=== PATIENT | male | born 1945 | race Caucasian/White ===

== ENCOUNTER 2022-01-14 07:57 | Day surgery (SDC) | payer MEDICARE, BC ==
[2022-01-14] VITALS (7 sets, daily range): BP systolic 151–171; BP diastolic 72–88
[~2022-01-14] VITALS: Ht 182.9 cm; Wt 85.8 kg
[2022-01-14] MEDS ORDERED: cefazolin/dext.iso 2gm/50ml 50 ML IV ONE (08:35)
[2022-01-14 08:45] LABS: BASOPHILS # (AUTO) 0.1 X10'3 (0-0.2); BASOPHILS % (AUTO) 0.9 % (0-1); EOSINOPHILS # (AUTO) 0.1 X10'3 (0-0.9); EOSINOPHILS % (AUTO) 2.1 % (0-6); HEMATOCRIT 39.9 % (42.0-52.0); HEMOGLOBIN 13.3 g/dl (14.0-17.9); LYMPHOCYTES # (AUTO) 1.6 X10'3 (1.1-4.8); LYMPHOCYTES % (AUTO) 23.1 % (21-51); MEAN CORPUSCULAR HEMOGLOBIN 31.2 PG (27.0-31.0); MEAN CORPUSCULAR HGB CONC 33.4 g/dL (33.0-36.5); MEAN CORPUSCULAR VOLUME 93.4 FL (78-98); MEAN PLATELET VOLUME 8.2 FL (7.4-10.4); MONOCYTES # (AUTO) 0.6 X10'3 (0-0.9); MONOCYTES % (AUTO) 8.7 % (2-12); NEUTROPHILS # (AUTO) 4.5 X10'3 (1.8-7.7); NEUTROPHILS % (AUTO) 65.2 % (42-75); PLATELET COUNT 172 X10'3 (140-440); RED BLOOD COUNT 4.27 X10'6 (4.70-6.10); RED CELL DISTRIBUTION WIDTH 13.8 % (11.5-14.5); WHITE BLOOD COUNT 6.9 X10'3 (4.5-11.0)
[2022-01-14] MEDS ORDERED: VANCOMYCIN 1,500MG in D5W 500ML IVPB IV ONE (08:45)
[2022-01-14] MEDS ORDERED: VANCOMYCIN 1,500MG inj. 1,500 MG in normal saline 250ml IV soln 300 ML IV ONE (08:51)
[2022-01-14 08:58] LABS: ALBUMIN 3.8 G/DL (3.4-5.0); ANION GAP 10 (8-16); BLOOD UREA NITROGEN 17 MG/DL (7-18); BUN/CREATININE RATIO 14.9 (5.4-32.0); CALCIUM 9.1 MG/DL (8.5-10.1); CHLORIDE 106 MMOL/L (99-107); CREATININE 1.14 MG/DL (0.60-1.10); GLUCOSE 110 MG/DL (70-104); MAGNESIUM 1.6 MG/DL (1.5-2.4); POTASSIUM 3.9 MMOL/L (3.5-5.1); SODIUM 143 MMOL/L (135-145); TOTAL CARBON DIOXIDE 27.5 MMOL/L (24-32); eGFR 62 ML/MIN
[2022-01-14] MEDS ORDERED: DULO60CA65 PO (09:40)
[2022-01-14] MEDS ORDERED: CARV25TA2 PO (09:40)
[2022-01-14] MEDS ORDERED: AMLO10TA13 PO (09:40)
[2022-01-14] MEDS ORDERED: FENO135C4 PO (09:40)
[2022-01-14] MEDS ORDERED: PANT40TA54 PO (09:40)
[2022-01-14] MEDS ORDERED: ATOR20TA66 PO (09:40)
[2022-01-14] MEDS ORDERED: DOXA4TAB5 PO (09:40)
[2022-01-14] MEDS ORDERED: METF-1203 PO (09:40)
[2022-01-14] MEDS ORDERED: ibuprofen tablet 400 MG TABLET PO STA (12:12)
[2022-01-14] MEDS ORDERED: fentaNYL/PF 50MCG/1 ML 2ML syringe ONE (13:01)
[2022-01-14] MEDS ORDERED: midazolam 1 mg/ML 2ml injection ONE ×2 (13:01→14:00)
[2022-01-14] MEDS ORDERED: LIDOCAINE 2% w/EPI 1:100:000 30mL injection MDV**cath lab 1 only ONE (13:01)
[2022-01-14] MEDS ORDERED: vancomycin 1,000mg inj ONE (13:01)
[2022-01-14] MEDS ORDERED: normal saline 1000ml 1,000 ML IV SCH (15:25)
== END 2022-01-14 16:26 | disposition home or self-care (01) ==
LOC: SSTAY O 07:57
PROVIDERS: ATTEND Internal Medicine Cardiovascular Disease
DX: Z45.02 Encounter for adjustment and management of automatic implantable cardiac defibrillator (principal); G47.30 Sleep apnea, unspecified; I44.7 Left bundle-branch block, unspecified; I47.1 Supraventricular tachycardia; I42.8 Other cardiomyopathies; K21.9 Gastro-esophageal reflux disease without esophagitis; Z86.010 Personal history of colon polyps; Z79.899 Other long term (current) drug therapy
CPT/HCPCS: 33264; 36415; 80048; 83735; 85025; 85610; 93005; C1882; J2250; J3010; J3370; J3490; J7030; J7050; 99152; 99153; A4620; A6258

== ENCOUNTER 2022-03-21 09:21 | Day surgery (SDC) | payer MEDICARE, BC ==
[2022-03-21] VITALS (9 sets, daily range): BP systolic 116–168; BP diastolic 67–94
[~2022-03-21] VITALS: Ht 182.9 cm; Wt 85.2 kg
[~2022-03-21 09:21] MED LIST: AMLO10TA13 PO; ATOR20TA66 PO; CARV25TA2 PO; DOXA4TAB5 PO; DULO60CA65 PO; FENO135C4 PO; METF-1203 PO; PANT40TA54 PO
[2022-03-21] MEDS ORDERED: diphenhydrAMINE 25mg capsule PO PRN (09:55)
[2022-03-21] MEDS ORDERED: normal saline 1,000 ML IV SCH (09:55)
[2022-03-21] MEDS ORDERED: ZOLP5TAB2 PO (10:22)
[2022-03-21] MEDS ORDERED: MULT-1085 PO (10:22)
[2022-03-21] MEDS ORDERED: CHOL500049 PO (10:22)
[2022-03-21] MEDS ORDERED: ASPI-611 PO (10:22)
[2022-03-21] MEDS ORDERED: CYAN50003 PO (10:22)
[2022-03-21] MEDS ORDERED: LIDOcaine 1% 30ml preserv. free vial ONE (10:24)
[2022-03-21] MEDS ORDERED: verapamil 2.5 mg/ml inj IV ONE (10:24)
[2022-03-21] MEDS ORDERED: nitroGLYCERIN-Tridil 50MG/D5W 250 ML IV ONE (10:24)
[2022-03-21] MEDS ORDERED: midazolam 1 mg/ML 2ml injection ONE ×2 (10:24→11:01)
[2022-03-21] MEDS ORDERED: fentaNYL/PF 50MCG/1 ML 2ML syringe ONE (10:24)
[2022-03-21] MEDS ORDERED: heparin 1,000unit/ml 10ml vial 10 ML ONE (10:25)
[2022-03-21] MEDS ORDERED: iohexol 350MG/ML 100ml bottle IV ONE (10:25)
[2022-03-21 10:51] LABS: BASOPHILS # (AUTO) 0.1 X10'3 (0-0.2); BASOPHILS % (AUTO) 0.9 % (0-1); EOSINOPHILS # (AUTO) 0.1 X10'3 (0-0.9); EOSINOPHILS % (AUTO) 1.8 % (0-6); HEMATOCRIT 39.2 % (42.0-52.0); LYMPHOCYTES # (AUTO) 1.5 X10'3 (1.1-4.8); LYMPHOCYTES % (AUTO) 22.2 % (21-51); MEAN CORPUSCULAR HEMOGLOBIN 30.6 PG (27.0-31.0); MEAN CORPUSCULAR HGB CONC 33.1 g/dL (33.0-36.5); MEAN CORPUSCULAR VOLUME 92.3 FL (78-98); MEAN PLATELET VOLUME 8.5 FL (7.4-10.4); MONOCYTES # (AUTO) 0.6 X10'3 (0-0.9); MONOCYTES % (AUTO) 8.2 % (2-12); NEUTROPHILS # (AUTO) 4.6 X10'3 (1.8-7.7); NEUTROPHILS % (AUTO) 66.9 % (42-75); PLATELET COUNT 220 X10'3 (140-440); RED BLOOD COUNT 4.25 X10'6 (4.70-6.10); WHITE BLOOD COUNT 6.9 X10'3 (4.5-11.0)
[2022-03-21 10:54] LABS: ALBUMIN 3.4 G/DL (3.4-5.0); ANION GAP 7 (8-16); BLOOD UREA NITROGEN 17 MG/DL (7-18); BUN/CREATININE RATIO 14.4 (5.4-32.0); CALCIUM 9.5 MG/DL (8.5-10.1); CHLORIDE 108 MMOL/L (99-107); CREATININE 1.18 MG/DL (0.60-1.10); GLUCOSE 122 MG/DL (70-104); MAGNESIUM 1.7 MG/DL (1.5-2.4); POTASSIUM 4.1 MMOL/L (3.5-5.1); SODIUM 144 MMOL/L (135-145); TOTAL CARBON DIOXIDE 28.8 MMOL/L (24-32); eGFR 60 ML/MIN
[2022-03-21] MEDS ORDERED: diphenhydrAMINE 50 mg/ml inj ONE (10:55)
[2022-03-21] MEDS ORDERED: hydrALAZINE 20mg/ml inj. IV ONE ×2 (11:22→11:33)
[2022-03-21] MEDS ORDERED: cloNIDine 0.1 mg tablet PO PRN (13:05)
[2022-03-21] MEDS ORDERED: proCHLORperazine 10 MG/2 ml inj IV PRN (13:10)
[2022-03-21] MEDS ORDERED: ondansetron/PF 4mg/2ml inj IV PRN (13:10)
[2022-03-21] MEDS ORDERED: HYDROcodone/acetaminophen 5mg/325mg tablet PO PRN (13:10)
[2022-03-21] MEDS ORDERED: acetaminophen 325mg tablet PO PRN (13:10)
[2022-03-21] MEDS ORDERED: normal saline 1000ml 1,000 ML IV SCH (13:10)
[2022-03-21] MEDS ORDERED: HYDROcodone/acetaminophen 10/325mg tab PO PRN (13:10)
== END 2022-03-21 15:30 | disposition home or self-care (01) ==
LOC: SSTAY O 09:21
PROVIDERS: ATTEND Internal Medicine Cardiovascular Disease
DX: R07.89 Other chest pain (principal); R06.09 Other forms of dyspnea; I42.8 Other cardiomyopathies; G47.30 Sleep apnea, unspecified; I47.1 Supraventricular tachycardia; I10 Essential (primary) hypertension; E78.5 Hyperlipidemia, unspecified; E11.9 Type 2 diabetes mellitus without complications; Z95.0 Presence of cardiac pacemaker; Z79.84 Long term (current) use of oral hypoglycemic drugs; Z79.82 Long term (current) use of aspirin; Z79.899 Other long term (current) drug therapy
CPT/HCPCS: 36415; 80048; 83735; 85025; 85610; 93005; 93458; 99152; 99153; C1769; C1894; J0360; J1200; J1644; J2250; J3010; J3490; J7030; Q9967; A4615; A4620; A5120; A6258; A6402

== ENCOUNTER 2023-01-03 19:15 | Emergency (ER) | payer MEDICARE, BC ==
[~2023-01-03] VITALS: Ht 182.9 cm; Wt 86.4 kg
[~2023-01-03 19:15] MED LIST changes: +ASPI-611 PO; +CHOL500049 PO; +CYAN50003 PO; +MULT-1085 PO; +ZOLP5TAB2 PO
[2023-01-03 19:34] VITALS: BP 139/64
[2023-01-03] MEDS ORDERED: LIDOcaine 1% 30ml preserv. free vial IJ ONE (23:40)
[2023-01-03] MEDS ORDERED: TETanus/Pertussis (Acell)/Diphther VAC/PF (Tdap-Adult) 0.5ml syringe IMVAC ONE (23:40)
[2023-01-03] MEDS ORDERED: bacitracin 15gm ointment TP ONE (23:40)
[2023-01-03] MEDS ORDERED: LIDOCAINE 2%/EPI 1:100,000 inj. Multi-dose 20 ML VIAL IJ ONE (23:55)
[2023-01-04] MEDS ORDERED: CEPH-585 PO (01:03)
[2023-01-04] MEDS ORDERED: ACET650T58 PO (01:42)
== END 2023-01-04 02:29 | disposition home or self-care (01) ==
LOC: ER 19:16
DX: S61.411A Laceration without foreign body of right hand, initial encounter (principal); Z88.5 Allergy status to narcotic agent; Z88.6 Allergy status to analgesic agent; Z79.899 Other long term (current) drug therapy; Z79.82 Long term (current) use of aspirin; W19.XXXA Unspecified fall, initial encounter; Y93.89 Activity, other specified; Y92.89 Other specified places as the place of occurrence of the external cause; Y99.8 Other external cause status
CPT/HCPCS: 12004; 73130; 90471; 90715; 99284; A6258